=== PATIENT | male | born 1965 | race Caucasian/White ===

== ENCOUNTER → 2016-07-23 | Outpatient (CLI) | payer OTHER ==
[~2016-07-23] MED LIST: ALBINS INH; ALBUAER2 INH; MXRAIN INH; OPTIRAY 320 IV PRN; OXYC7.5T37 PO; PRED20TA PO; THL24/300 PO
--- NOTE | 2016-07-23 10:42 | DIAGNOSTIC IMAGING REPORT ---
CT OF THE CHEST WITH IV CONTRAST CLINICAL HISTORY: Solitary thyroid nodule COMPARISON STUDY: 07/12/2015 TECHNIQUE: Following the IV administration of 93 mL of Optiray-320, CT of the thorax was performed from the thoracic inlet to the lung bases. Images are reviewed in the axial, sagittal, and coronal planes. IV contrast was administered without complication. CT DOSE: 461.51 mGycm FINDINGS: Thyroid: Imaged portions of the thyroid gland are normal in appearance. Thoracic aorta: The thoracic aorta is normal in course and caliber, noting standard 3-vessel arch anatomy. No aneurysm or dissection is seen. Pulmonary vasculature: The pulmonary trunk is normal in caliber. There are no central filling defects identified to suggest pulmonary embolus. Note that this examination was not protocoled for the evaluation of pulmonary emboli. HEART: The heart is normal in size and configuration, without pericardial effusion. Lungs and pleural spaces: There is moderately severe pulmonary emphysema. There are no pleural effusions. There is no lobar consolidation. There is a stable area of architectural distortion within the right lung apex, likely representing scar. There is a second area of presumed scarring within the right upper lobe more inferiorly. There is a stable 5 mm right lower lobe pulmonary nodule. Mediastinum: There is no mediastinal lymphadenopathy. Milagros: Clear. Axilla: Clear. Upper abdomen: There are multiple hypodense hepatic lesions, unchanged the prior study, likely representing cysts or biliary hamartomas Skeletal structures: There are no lytic or blastic osseous lesions. IMPRESSION: 1. No significant change from the prior study 2. Emphysema with stable upper lobe scarring 3. Stable 5 mm right lower lobe pulmonary nodule Electronically signed by: Robbie Acharya M.D. 07/23/2016 10:41 AM Dictated Date/Time: 07/23/2016 10:17 AM
[2016-07-23 12:22] LABS: BLOOD UREA NITROGEN 18 mg/dl (7-18); BUN/CREATININE RATIO 15.9 (10-20); CALCIUM 8.4 mg/dl (8.5-10.1); CARBON DIOXIDE 25 mmol/L (21-32); CHLORIDE 108 mmol/L (98-107); GLUCOSE 95 mg/dl (70-99); POTASSIUM 4.1 mmol/L (3.5-5.1); SODIUM 140 mmol/L (136-145)
== END | disposition home or self-care (01) ==
LOC: C.CTS 09:50
PROVIDERS: ATTEND Physician Assistant
DX: R91.1 Solitary pulmonary nodule (principal)